=== PATIENT | male | born 1960 | race Caucasian/White ===

== ENCOUNTER → 2017-07-18 | Outpatient (CLI) | payer BC | LOC: M.RAD 15:05 | DX: R05 Cough (principal) ==

== ENCOUNTER → 2018-04-14 | Outpatient (CLI) | payer BC | LOC: M.RAD 07:46 | DX: J98.4 Other disorders of lung (principal); R10.30 Lower abdominal pain, unspecified ==

== ENCOUNTER → 2018-10-18 | Outpatient (CLI) | payer BC | LOC: M.RAD 15:34 | DX: J84.10 Pulmonary fibrosis, unspecified (principal); R09.89 Other specified symptoms and signs involving the circulatory and respiratory systems ==

== ENCOUNTER → 2019-05-22 | Outpatient (CLI) | payer BC | LOC: M.RAD 15:16 | DX: J84.10 Pulmonary fibrosis, unspecified (principal) ==

== ENCOUNTER → 2019-09-13 | Outpatient (CLI) | payer BC | LOC: M.RAD 12:19 | DX: N63.10 Unspecified lump in the right breast, unspecified quadrant (principal); N64.89 Other specified disorders of breast ==

== ENCOUNTER → 2020-01-15 | Outpatient (CLI) | payer BC | LOC: M.CT 09:00 | PROVIDERS: ATTEND Family Medicine | DX: R42 Dizziness and giddiness (principal); R51 Headache; H53.9 Unspecified visual disturbance ==

== ENCOUNTER → 2020-08-20 | Outpatient (CLI) | payer BC | LOC: M.LAB 08:51 | PROVIDERS: ATTEND Orthopaedic Surgery | DX: Z01.812 Encounter for preprocedural laboratory examination (principal); Z20.822 Contact with and (suspected) exposure to COVID-19 ==

== ENCOUNTER 2020-10-27 15:25 | Observation (INO) | payer BC ==
[~2020-10-27] VITALS: Ht 180.3 cm; Wt 107.5 kg
[2020-10-27 15:36] VITALS: BP 134/65
[2020-10-27] MEDS ORDERED: SUPER THERAVIT1 EACH PO (15:42)
[2020-10-27] MEDS ORDERED: PREVACID30 MG PO (15:42)
[2020-10-27] MEDS ORDERED: ASA81BEC PO (15:42)
[2020-10-27] MEDS ORDERED: AZELASTINE205.5 MCG/ NARES (15:43)
[2020-10-27] MEDS ORDERED: CALTRATE 600 +1 EAC1 PO (15:43)
[2020-10-27] MEDS ORDERED: METFORMIN HCL500 M3 PO (15:44)
[2020-10-27] MEDS ORDERED: CITIRIZINE PO (15:44)
[2020-10-27] MEDS ORDERED: NITROSTAT0.4 M1 SUBLING (15:48)
[2020-10-27] MEDS ORDERED: REQUIP 0.25 M0.25 MG PO (15:49)
[2020-10-27] MEDS ORDERED: FLONASE 0.05%50 MCG NARES (15:49)
[2020-10-27] MEDS ORDERED: LIPITOR40 MG PO (15:49)
[2020-10-27] MEDS ORDERED: TOPROL XL50 MG PO (15:51)
[2020-10-27 15:53] LABS: ABSOLUTE BASOPHILS 0.1 thou/uL (0.0-0.2); ABSOLUTE EOSINOPHILS 0.1 thou/uL (0.0-0.7); ABSOLUTE LYMPHOCYTES 3.3 thou/uL (0.8-5.3); ABSOLUTE MONOCYTES 0.8 thou/uL (0.0-1.2); ABSOLUTE NEUTROPHILS 3.1 thou/uL (1.6-8.1); BASOPHILS 0.8 %; EOSINOPHILS 1.6 %; HEMATOCRIT 40.5 % (42.0-52.0); LYMPHOCYTES 45.3 %; MCH 30.1 pg (26.0-34.0); MCHC 34.5 g/dL (28.0-37.0); MCV 87.4 fL (80.0-100.0); MONOCYTES 10.6 %; MPV 8.5 fl. (7.2-11.1); NUCLEATED RBCS 0 /100WBC; PLATELET COUNT* 189 thou/uL (150-400); POLYS 41.7 %; RBC 4.64 mil/uL (4.50-6.00); RDW-CV 13.3 % (10.5-14.5); WBC 7.3 thou/uL (4.0-11.0)
[2020-10-27] MEDS ORDERED: OZEMPIC1 MG/0.71 SUBQ (15:53)
[2020-10-27] MEDS ORDERED: ZETIA10 MG PO (15:53)
[2020-10-27] MEDS ORDERED: ENTRESTO 24 MG1 EACH PO (15:54)
[2020-10-27] MEDS ORDERED: HYDROCODON-ACE1 EAC7 PO (15:56)
[2020-10-27 16:02] LABS: CALCIUM 8.7 mg/dL (8.5-10.1); CREATININE 1.2 mg/dL (0.6-1.3); POTASSIUM 3.9 mmol/L (3.5-5.1)
[2020-10-27 16:13] LABS: TOTAL BILIRUBIN 0.5 mg/dL (<0.1-1.0); TOTAL PROTEIN 7.4 g/dL (6.4-8.2)
[2020-10-27 20:01] VITALS: BP 125/60
[2020-10-27 20:30] VITALS: BP 118/69
--- NOTE | 2020-10-27 20:30 | NUR ---
RECEIVED REPORT FROM ER AND PT TO ROOM AT 2004, AT BEDSIDE. PT DENIES BLURRED VISION OR DIZZINESS AT PRESENT TIME. TELEMETRY APPLIED SHOWING SR WITH 1ST AVB AND PVC. SEE ADMISSION ASSESSMENT AND HX. AT BEDSIDE. WILL CONT TO MONITOR AND ASSIST NEEDED.
[2020-10-27] MEDS ORDERED: ROPINIROLE HCL0.5 MG PO (21:17)
[2020-10-27] MEDS ORDERED: MELATONIN5 MG PO (21:18)
[2020-10-28] VITALS: BP 113/72
[2020-10-28 04:00] VITALS: BP 117/72
--- NOTE | 2020-10-28 07:05 | NUR ---
SLEPT WELL TONIGHT. DENIES DIZZINESS OR SYNCOPAL FEELING WHILE RESTING. VOIDING PER URINAL. TELEMETRY SHOWING SR. NO CHANGE IN ASSESSMENT. HS GOALS OF REST AND SAFETY ACHIEVED. HOURLY ROUNDING OBSERVED.
[2020-10-28 08:13] VITALS: BP 126/67
--- NOTE | 2020-10-28 09:00 | EKG ---
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 : 1960 Requested By: Chuck Gomes Order Number: [id number] MD: Hakeem Patel Measurements Intervals [place] Rate: 70 P: 37 CT: 192 QRS: 108 QRSD: 92 T: 79 QT: 393 QTc: 425 Interpretive Statements Sinus rhythm Anterolateral infarct, old Compared to ECG 03/02/2017 15:01:10 T-wave abnormality no longer present Possible ischemia no longer present Myocardial infarct finding still present Electronically Signed On 10-28-2020 9:00:23 CDT by Hakeem Patel [email or web address] <ELECTRONICALLY SIGNED> By: Hakeem Patel MD, FACC 10/28/20 0900 1534 1534 Hakeem Patel MD, FAC /EPI
[2020-10-28 12:13] VITALS: BP 122/62
--- NOTE | 2020-10-28 14:04 | 2DMMODE ---
[place] [address] 2 D/M-MODE ECHOCARDIOGRAM Name: GRACEKYLE SALAS JR Room: [address] Greta#: [id number] Admission: 10/27/20 Attend Phys: Isaura Dong, Discharge: Date of : 60 Date of Service: 10/28/20 1404 Report #: [id number] THIS REPORT FOR: cc: Alysa Ragsdale Linda J. DO Liston, Michael J. MD [facility] ~ APPROVED REPORT Study performed: 10/28/2020 11:27:51 EXAM: Comprehensive 2D, Doppler, and color-flow Echocardiogram Patient Location: In-Patient Room #: [facility] Status: routine BSA: 2.27 HR: 68 bpm BP: 126/67 mmHg Rhythm: NSR Other Information Study Quality: Good Indications Syncope 2D Dimensions IVSd: 12.33 (7-11mm) LVOT Diam: 22.83 (18-24mm) LVDd: 49.61 mm PWd: 10.64 (7-11mm) Ascending Ao: 34.95 (22-36mm) LVDs: 35.58 (25-40mm) Aortic Root: 36.86 mm Volumes Left Atrial Volume (Systole) LA ESV Index: 33.10 mL/m2 Aortic Valve AoV Peak Dat.: 1.28 m/s AO Peak Gr.: 6.53 mmHg LVOT Max P.56 mmHg AO Mean Gr.: 3.93 mmHg LVOT Mean P.36 mmHg LVOT Max V: 0.80 m/s AO V2 VTI: 26.53 cm LVOT Mean V: 0.54 m/s EUGENIO (VTI): 3.00 cm2 LVOT V1 VTI: 19.42 [place] [address] 2 D/M-MODE ECHOCARDIOGRAM Name: KYLE EDWARDS Room: [address]R.#: [id number] Admission: 10/27/20 Attend Phys: Isaura Dong, Discharge: Date of : 60 Date of Service: 10/28/20 1404 Report #: [id number] Mitral Valve E/A Ratio: 0.84 MV Decel. Time: 198.91 ms MV E Max Dat.: 0.91 m/s MV PHT: 57.68 ms MVA (PHT): 3.81 cm2 TDI E/Lateral E': 10.11 E/Medial E': 10.11 Medial E' Dat.: 0.09 m/s Lateral E' Dat.: 0.09 m/s Pulmonary Valve PV Peak Dat.: 1.34 m/s PV Peak Gr.: 7.16 mmHg Left Ventricle The left ventricle is normal size. There is a region of akinesis involving the apex and apical portions of the septum anterior wall and inferior wall. There is normal left ventricular wall thickness. Left ventricular systolic function is mild to moderately decreased. LVEF is 35-40%. Grade I - abnormal relaxation pattern. Right Ventricle The right ventricle is normal size. The right ventricular systolic function is normal. Atria The left atrium size is normal. The right atrium size is normal. Aortic Valve The aortic valve is normal in structure. No aortic regurgitation is present. There is no aortic valvular stenosis. Mitral Valve The mitral valve is normal in structure. Mild mitral regurgitation. No evidence of mitral valve stenosis. Tricuspid Valve The tricuspid valve is normal in structure. Trace tricuspid regurgitation. Unable to assess PA pressure. Pulmonic Valve The pulmonary valve is normal in structure. [place] [address] 2 D/M-MODE ECHOCARDIOGRAM Name: KYLE EDWARDS Room: [address]#: [id number] Admission: 10/27/20 Attend Phys: Isaura Dong, Discharge: Date of : 60 Date of Service: 10/28/20 1404 Report #: [id number] Great Vessels The aortic root is normal in size. IVC is normal in size and collapses >50% with inspiration. Pericardium There is no pericardial effusion. <Conclusion> The left ventricle is normal size. There is normal left ventricular wall thickness. Left ventricular systolic function is mild to moderately decreased. LVEF is 35-40%. Grade I - abnormal relaxation pattern. There is a region of akinesis involving the apex and apical portions of the septum anterior wall and inferior wall. Mild mitral regurgitation. Trace tricuspid regurgitation. IVC is normal in size and collapses >50% with inspiration. <ELECTRONICALLY SIGNED> By: Hakeem Patel MD, FACC 10/28/20 1404 1404 1404 Hakeem Patel MD, FACC /INF
[2020-10-28 16:27] VITALS: BP 125/68
[2020-10-28 17:21] VITALS: BP 125/68
--- NOTE | 2020-10-28 21:15 | NUR ---
DISCHARGE INSTRUCTIONS GIVEN, PT STATED UNDERSTANDING. IV AND TELE MONITOR REMOVED. PT LEFT UNIT VIA WC WITH STAFF.
== END 2020-10-28 20:27 | disposition home or self-care (01) ==
LOC: M.ERS 15:25 → M.2W 17:00 → M.TBA-ER 17:00 → M.2W 20:06
PROVIDERS: Emergency Medicine Emergency Medical Services; ADMIT Internal Medicine; ATTEND Internal Medicine
DX: R42 Dizziness and giddiness (principal); Z20.822 Contact with and (suspected) exposure to COVID-19; I25.10 Atherosclerotic heart disease of native coronary artery without angina pectoris; E86.0 Dehydration; E11.65 Type 2 diabetes mellitus with hyperglycemia; E78.00 Pure hypercholesterolemia, unspecified; Z79.82 Long term (current) use of aspirin; Z79.84 Long term (current) use of oral hypoglycemic drugs; Z79.899 Other long term (current) drug therapy; Z87.891 Personal history of nicotine dependence; Z95.818 Presence of other cardiac implants and grafts

== ENCOUNTER → 2021-02-25 | Outpatient (CLI) | payer BC ==
[~2021-02-25] MED LIST: ACETAMINOPHEN500 M1 PO; ASA81BEC PO; AZELASTINE205.5 MCG/ NARES; CALTRATE 600 +1 EAC1 PO; CITIRIZINE PO; EFFER-K 10 MEQ10 ME1 PO; ENTRESTO 24 MG1 EACH PO; FLONASE 0.05%50 MCG NARES; FUROSEMIDE 20 M20 MG PO; HYDROCODON-ACE1 EAC7 PO; JARDIANCE10 MG PO; LIPITOR40 MG PO; LYRICA150 MG PO; MELATONIN5 MG PO; METFORMIN HCL500 M3 PO; NITROSTAT0.4 M1 SUBLING; OZEMPIC1 MG/0.71 SUBQ; PREVACID30 MG PO; PROAIR HFA8.5 GM INH; REQUIP 0.25 M0.25 MG PO; ROPINIROLE HCL0.5 MG PO; SUPER THERAVIT1 EACH PO; TOPROL XL50 MG PO; ZETIA10 MG PO
== END ==
LOC: M.MRI 13:39
PROVIDERS: ATTEND Orthopaedic Surgery
DX: S83.232A Complex tear of medial meniscus, current injury, left knee, initial encounter (principal); M25.762 Osteophyte, left knee; M17.12 Unilateral primary osteoarthritis, left knee; M25.462 Effusion, left knee; R07.89 Other chest pain; X58.XXXA Exposure to other specified factors, initial encounter; Y93.89 Activity, other specified; Y92.89 Other specified places as the place of occurrence of the external cause; Y99.8 Other external cause status

== ENCOUNTER → 2021-03-23 | Outpatient (CLI) | payer BC ==
[2021-03-23 10:12] LABS: ABSOLUTE BASOPHILS 0.1 thou/uL (0.0-0.2); ABSOLUTE EOSINOPHILS 0.1 thou/uL (0.0-0.7); ABSOLUTE LYMPHOCYTES 2.3 thou/uL (0.8-5.3); ABSOLUTE MONOCYTES 0.7 thou/uL (0.0-1.2); ABSOLUTE NEUTROPHILS 3.9 thou/uL (1.6-8.1); BASOPHILS 1.2 %; EOSINOPHILS 0.9 %; HEMOGLOBIN 13.9 gm/dL (14.0-18.0); LYMPHOCYTES 32.5 %; MCH 30.1 pg (26.0-34.0); MCHC 33.8 g/dL (28.0-37.0); MCV 88.9 fL (80.0-100.0); MONOCYTES 9.5 %; MPV 8.1 fl. (7.2-11.1); NUCLEATED RBCS 0 /100WBC; PLATELET COUNT* 201 thou/uL (150-400); POLYS 55.9 %; RBC 4.61 mil/uL (4.50-6.00); RDW-CV 13.4 % (10.5-14.5)
[2021-03-23 10:42] LABS: PROTIME 10.6 Seconds (9.20-11.50)
[2021-03-23 10:50] LABS: ALBUMIN 3.9 g/dL (3.4-5.0); CALCIUM 8.8 mg/dL (8.5-10.1); CREATININE 1.3 mg/dL (0.6-1.3); POTASSIUM 4.6 mmol/L (3.5-5.1); TOTAL BILIRUBIN 0.6 mg/dL (<0.1-1.0); TOTAL PROTEIN 6.9 g/dL (6.4-8.2)
[2021-03-23 11:11] LABS: URINE BILIRUBIN NEGATIVE (Negative); URINE BLOOD NEGATIVE (Negative); URINE CLARITY CLEAR; URINE COLOR YELLOW; URINE GLUCOSE-RANDOM 3+ (Negative); URINE KETONES NEGATIVE (Negative); URINE LEUKOCYTES-REFLEX NEGATIVE (Negative); URINE NITRITE-REFLEX NEGATIVE (Negative); URINE PROTEIN NEGATIVE (Negative); URINE UROBILINOGEN 0.2 E.U./dl (0.2-1.0)
== END ==
LOC: M.LAB 09:43
PROVIDERS: ATTEND Orthopaedic Surgery
DX: Z01.818 Encounter for other preprocedural examination (principal); Z01.812 Encounter for preprocedural laboratory examination; M17.12 Unilateral primary osteoarthritis, left knee

== ENCOUNTER 2021-03-31 08:45 | Observation (INO) | payer BC ==
--- NOTE | 2021-03-30 12:07 | NUR ---
Patient attended PAT class on 03/23/21 and was educated on Enhanced Recovery Program by this RN. Patient will be NPO solids after midnight. Patient may have clear liquids up to 3 hours before scheduled surgery. Patient will take morning pills at this time. Patient is to drink Gatorade Zero Sugar 2 hours before surgery then nothing else. Clear liquids consists of coffee/tea without creamer, broth without noodles, jello, clear juices of apple, grape or cranberry only or popsicles. Patient verbalized understanding. Patient was called on 03/30/21 by this RN and left message on answering machine of above instructions as a reminder.
[~2021-03-31] VITALS: Ht 180.3 cm; Wt 102.1 kg
[2021-03-31 10:29] VITALS: BP 121/86
--- NOTE | 2021-03-31 17:02 | NUR ---
PT ADMITTED FROM SURGERY WITH L KNEE REPLACEMENT. HISTORY AND ASSESSMENT COMPLETED. DRESSING TO L KNEE C/D/I. HEMO VAC AND POLAR PACK IN PACE. PT DENIES PAIN. ORDER TO PLACE MURRY CATHETER IF UNABLE TO URINATE. O2 2L NC. CONTINUOUS O2 SAT MONITOR IN PLACE. CALL LIGHT IN REACH. FALL PRECAUTIONS IN PLACE.
[2021-03-31 20:05] VITALS: BP 119/70
[2021-04-01] VITALS (8 sets, daily range): BP systolic 92–113; BP diastolic 55–63
--- NOTE | 2021-04-01 04:17 | NUR ---
PATIENT HAS REMAINED ALERT AND ORIENTED X 4, RESTING QUIETLY ON HOURLY ROUNDS. CPM INITIATED HS ORDERED. PATIENT TOLERATED WELL. MEDICATED FOR PAIN X 2 OF THIS WRITING TO GOOD EFFECT. DRESSING LEFT KNEE CLEAN AND DRY WITH HEMOVAC PRESENT, POLARCARE RIGHT KNEE, AND VICTOR HUGO HOSE TO LEFT LE. FALL PRECAUTIONS IN PLACE. VITAL SIGNS STABLE WITH HOME CPAP HS. O2 2L/MIN POST-OP WITH CONTINUOUS OXIMETRY. ADEQUATE VOIDS. NO NAUSEA WITH ORAL FLUIDS/FOOD. CONTINUE TO MONITOR.
[2021-04-01 05:42] LABS: HEMATOCRIT 37.1 % (42.0-52.0); HEMOGLOBIN 12.5 gm/dL (14.0-18.0)
[2021-04-01] MEDS ORDERED: ASPIRIN EC325 M1 PO (15:17)
--- NOTE | 2021-04-01 16:55 | NUR ---
PATIENT UP WITH THERAPY THIS SHIFT, WALKER AND GAIT BELT UTILIZED. POLAR RABIA TO LEFT KNEE. HEMOVAC WAS DC'D THIS AM. HOME HEALTH SET UP FOR PATIENT. PATIENT TO TAKE ASPIRIN 325MG DAILY FOR [address] RIOS IN PLACE OF [place]. PRN PERCOCET GIVEN X 2 THIS SHIFT, 0XY IR GIVEN X 1 FOR BREAKTHROUGH. PATINT TAKEN OUT VIA WHEELCHAIR WITH ALL BELONGINGS.
--- NOTE | 2021-04-01 17:36 | NUR ---
CM ASSESSMENT ASSESSMENT COMPLETED WITH PT. PT RESIDES WITH IN A HOME WITH 15 STEPS TO THE FRONT DOOR. PT REPORTED BEING ABLE TO COMPLETE STEPS WITH PT TODAY AND INDICATED HE COULD COMPLETE STEPS AT HOME. PT IS INDEPENDENT WITH ADLS. PT HAS A STANDING AND SEATED WALKER. PT HAS NOT HAD SKILLED OR REHAB SERVICES. PT HAD HH SERVICES IN THE PAST. PT SEEKING HH SERVICES WITH PT AND WAS LINKED TO [facility] ([phone]). PT DISCHARGED HOME WITH HH.
--- NOTE | 2021-04-01 21:30 | OP ---
[facility] [address] [place] [address] OPERATIVE REPORT Name: KYLE EDWARDS JR Room: [address] Adrián Hernandes#: [id number] Admission: 03/31/21 Attend Phys: Leti Romo Discharge: 04/01/21 Date of : 60 Report #: [id number] THIS REPORT FOR: cc: Alysa Ragsdale Linda J. DO Greiner, Robert F. II DO ~ DATE OF SURGERY: 03/31/2021 PREOPERATIVE DIAGNOSIS: Left knee osteoarthritis. POSTOPERATIVE DIAGNOSIS: Left knee osteoarthritis. PROCEDURE: Left total knee arthroplasty. SURGEON: Oscar Magdaleno II, DO. LEAD PAINTER: CONNER Grimm. ANESTHESIA: General endotracheal. ESTIMATED BLOOD LOSS: Approximately 50 mL ANTIBIOTICS: Ancef preoperatively. DRAINS: Medium Hemovac. COMPLICATIONS: None. CONDITION: The patient stable to recovery room. IMPLANTS: Listed in operative record and progress note. BRIEF HISTORY: The patient in the preoperative area. Preoperative H and P was performed. Site was marked, questions were answered. Risks and benefits were discussed with the patient in detail about surgery. The patient wished to proceed assuming all risks. DESCRIPTION OF PROCEDURE: The patient was taken to the operative suite, placed supine on the operating table, given appropriate anesthesia. A well-padded tourniquet applied to the upper thigh, which was inflated to 300 mmHg after gravity exsanguination. The operative knee was sterilely prepped and draped. Surgery began by midline incision was carried down to subcutaneous tissues. A medial parapatellar arthrotomy was performed, carried down to bone. Patella was then everted and excess soft tissue removed from the femur. Femoral cutting block was then applied, checked with a drop rotational alignment, pinned in appropriate position and appropriate cuts were made. A 4-in-1 [place] [address] OPERATIVE REPORT Name: KYLE EDWARDS JR Room: [address]#: [id number] Admission: 03/31/21 Attend Phys: Leti Romo Discharge: 04/01/21 Date of : 60 Report #: [id number] then applied, checked for rotational alignment, pinned in appropriate position and appropriate cuts were made. The tibia was exposed. Excess meniscus was removed. Retractor was placed on collateral ligaments. Tibial cutting block was then applied, pinned in appropriate position, checked with drop hood for rotational alignment and slope and appropriate cut was made. Tibial bone was removed. Tibial baseplate was then applied, checked for rotational alignment drop hood and pinned in appropriate position. Femur was then applied and box cut was reamed. This was then trialed with appropriate spacer, which showed excellent fit and fill and excellent stability of the knee through all range of motion. The patella was reamed in appropriate fashion, sized to appropriate size. Three peg holes were drilled and it was then trialled and showed excellent flexion, extension, excellent tracking patellofemoral groove. These trials were removed. Tibia was punched in appropriate fashion. Bone ends were cleansed with Pulsavac irrigation and cement was mixed, applied to final implants. These were then malleted in position and held the knee in extension and compressed to allow cement to cure. After it cured, excess was removed utilizing [place] and osteotome. Wound was then copiously irrigated and the final spacer was then malleted into position. Tourniquet was deflated. Hemostasis was maintained with electrocautery. Pain cocktail injected. Medium Hemovac drain was applied. Capsule was closed with #2 FiberWire and 1 Vicryl in [id number] fashion. Skin was closed with 2-0 Vicryl in running 3-0 Monocryl. Dermabond and sterile dressing applied. Romel wrap and PolarCare applied. The patient transported to recovery in stable condition. Counts were correct throughout the procedure. <ELECTRONICALLY SIGNED> By: Oscar Magdaleno II, DO 04/01/21 2130 0540 [id number] Magdaleno II, DO /nt
== END 2021-04-01 16:45 | disposition home health service (06) ==
LOC: M.TBA 08:45 → M.ORTHSURG 09:45 → M.3W 12:50 → M.TBA 12:50 → EDSTATUS 13:37 → M.ORTHSURG 13:54 → M.3W 16:10
PROVIDERS: Orthopaedic Surgery; ADMIT Internal Medicine; ATTEND Internal Medicine
DX: M17.12 Unilateral primary osteoarthritis, left knee (principal); Z20.822 Contact with and (suspected) exposure to COVID-19; I25.10 Atherosclerotic heart disease of native coronary artery without angina pectoris; E11.9 Type 2 diabetes mellitus without complications; G47.30 Sleep apnea, unspecified; Z95.818 Presence of other cardiac implants and grafts; Z79.84 Long term (current) use of oral hypoglycemic drugs; Z79.899 Other long term (current) drug therapy